=== PATIENT | male | born 1960 | race Caucasian/White ===

== ENCOUNTER 2022-11-21 07:03 | Outpatient (CLI) | payer BC, SELFPAY ==
--- NOTE | ~2022-11-21 | CT_ITS ---
CT scan of the Neck Technique: 2.5 mm axial scans were obtained through the neck after intravenous administration of 75 c c Omnipaque 350. Coronal and sagittal reconstructions of the neck were obtained. Dose reduction techn ique was used on this scan by utilizing automated exposure control and iterative reconstruction techn ique. The dose-length product (DLP) was 559.15 mGy-cm. Clinical History: Left neck mass Findings: There is a 2.8 x 1.8 x 3.1 cm mass probably within the inferior tail of the superficial portion of th e left parotid gland, or mass just inferior to this. Lesion is anterior/superficial to the left lung clear mastoid muscle, with a preserved fat plane. Lesion itself is heterogeneous, with nodular enhanc ing soft tissue components as well as cystic/necrotic components. No other abnormal mass lesion or lymphadenopathy seen in the neck. Parapharyngeal fat preserved bilat erally. Submandibular glands and right parotid gland are unremarkable. The pharyngeal mucosal spaces appear normal. No soft tissue masses are seen in the neck. The thyroid gland appears normal. Images of the lung apices reveal no abnormalities. Impression: 2.8 x 1.8 x 1.3 cm mass probably within the inferior tail of the superficial left parotid lobe, as de tailed above. This is compatible with a neoplastic lesion, with both benign and malignant neoplasms w ithin the differential diagnosis. CT imaging is of limited efficacy in identifying a particular histo logy of parotid/salivary gland tumor, as there is extensive overlap of imaging features. Surgical con sultation and/or tissue sampling should be strongly considered. Reviewed, dictated and finalized at location . Impression: 2.8 x 1.8 x 1.3 cm mass probably within the inferior tail of the superficial le ft parotid lobe, as detailed above. This is compatible with a neoplastic lesion , with both benign and malignant neoplasms within the differential diagnosis. C T imaging is of limited efficacy in identifying a particular histology of parot id/salivary gland tumor, as there is extensive overlap of imaging features. Tavares gical consultation and/or tissue sampling should be strongly considered.
[2022-11-21 08:04] LABS: Estimated Glomerular Filt Rate 56
== END 2022-11-21 07:04 | disposition home or self-care (01) ==
PROVIDERS: PCP Family Medicine; Visit Provider Otolaryngology
DX: K11.8 Other diseases of salivary glands (principal)
CPT/HCPCS: 70491; Q9967